=== PATIENT | female | born 2000 | race Caucasian/White ===

== ENCOUNTER 2019-04-09 18:00 | Emergency (ER) | payer OTHER ==
[~2019-04-09] VITALS: Ht 162.6 cm; Wt 52.1 kg
[2019-04-09 18:03] VITALS: BP 136/84; Ht 162.6 cm; Wt 52.1 kg
[2019-04-09] MEDS ORDERED: ONDANSETRON 4 MG INJ IV STA (18:33)
[2019-04-09] MEDS ORDERED: ACETAMINOPHEN 500 MG TAB PO STA (18:33)
[2019-04-09] MEDS ORDERED: SOD CHLORIDE 0.9% 1,000 ML IV STA (18:33)
[2019-04-09] MEDS ORDERED: KETOROLAC 30 MG INJ IV STA (18:33)
[2019-04-09] MEDS ORDERED: DEXAMETHASONE 10 MG/ML 1 ML INJ IM ONE (19:00)
[2019-04-09 19:07] VITALS: PULSE 115; RESP 20
[2019-04-09] MEDS ORDERED: IBUP800T48 PO (19:39)
[2019-04-09] MEDS ORDERED: ACET-141 PO (19:39)
[2019-04-09] MEDS ORDERED: ONDA4TAB14 PO (19:40)
--- NOTE | 2019-04-09 20:39 | ERD ---
ER Documentation Chief Complaint Chief Complaint fever , sore throat , nausea , dizziness x 3 days HPI History of Present Illness: 19-year-old female who denies a past medical history coming in today with complaint of sore throat. Patient reports developing a sore throat approximately 3 days ago. Patient reports a fever started yesterday with a T-max of 101. Patient reports nausea that started this morning As well as weakness and fatigue. Associated symptoms includes pain with swallowing. At home pharmacological/nonpharmacological treatment for symptoms: Denies Denies social concerns; Denies recent foreign travel ROS All systems reviewed and are negative except as per history of present illness. Medications Home Meds Active Scripts Ondansetron (Ondansetron Odt) 4 Mg Tab.rapdis, 4 MG PO Q6H PRN for NAUSEA AND/OR VOMITING, #10 TAB Prov:ALEJANDRO KELLER NP 04/09/19 Acetaminophen* (Acetaminophen*) 500 MG Extra Strength Tablet, 1000 MG PO Q6H PRN for PAIN AND OR ELEVATED TEMP, #30 TAB Prov:ALEJANDRO KELLER V [employer]IGHT 04/09/19 Ibuprofen* (Motrin*) 800 Mg Tab, 800 MG PO Q6H PRN for PAIN AND/OR INFLAMMATION, #30 TAB Prov:ALEJANDRO KELLER V [employer]IGHT 04/09/19 Allergies Allergies: Coded Allergies: No Known Allergy (Unverified , 04/09/19) PMhx/Soc Medical and Surgical Hx: pt denies Medical Hx, pt denies Surgical Hx Hx Alcohol Use: No Hx Substance Use: No Hx Tobacco Use: No Smoking Status: Never smoker FmHx Family History: diabetes; No coronary disease Physical Exam Vitals Vital Signs Date Temp Pulse Resp B/P (MAP) Pulse Ox O2 O2 Flow FiO2 Time Delivery Rate 04/09/19 102.5 115 20 98 Room Air 19:07 04/09/19 101.7 112 18 136/84 98 18:03 (101) Physical Exam Const: No acute distress Head: Atraumatic Eyes: Normal Conjunctiva ENT: Normal External Ears, Nose; mild erythema noted to oropharynx, 2+ tonsils with tonsillar exudate Neck: Full range of motion. No meningismus. Resp: Clear to auscultation bilaterally Cardio: Tachycardia at 110, no murmurs Abd: Soft, non tender, non distended. Normal bowel sounds Skin: No petechiae or rashes Back: No midline or flank tenderness Ext: No cyanosis, or edema Neur: Awake and alert Psych: Normal Mood and Affect Results 24 hrs Laboratory Tests Test 04/09/19 19:08 POC Beta HCG, Qualitative NEGATIVE Current Medications Medications Dose Sig/Ras Start Time Status Last (Trade) Ordered Route PRN Stop Time Admin Dose Reason Admin Sodium 1,000 ml @ Q1H STAT 04/09/19 DC 04/09/19 Chloride 1,000 mls/hr IV 18:33 19:02 04/09/19 19:32 1,000 mg ONCE STAT 04/09/19 DC 04/09/19 Acetaminophen PO 18:33 18:55 (Tylenol 04/09/19 18:37 Tab) Ondansetron 4 mg ONCE STAT 04/09/19 DC HCl (Zofran IV 18:33 Inj) 04/09/19 18:37 Ketorolac 30 mg ONCE STAT 04/09/19 DC 04/09/19 Tromethamine IV 18:33 19:18 (Toradol) 04/09/19 18:37 8 mg ONCE ONCE 04/09/19 DC 04/09/19 Dexamethasone IM 19:00 18:55 (Decadron) 04/09/19 19:01 Procedures/MDM ED course includes a thorough examination and history. Medications: Acetaminophen, ketorolac, dexamethasone, IV NS, Zofran Imaging: Labs: Rapid strep Low suspicion for life-threatening medical emergency. Low suspicion for infectious process that requires hospitalization or IV/IM antibiotics. Low suspicion for peritonsillar abscess. Otherwise healthy patient presenting with constellation of symptoms likely representing uncomplicated pharyngitis as characterized by history, physical exam findings, lab findings. Rapid strep negative. Strep culture ordered. Patient reassessment 1950: Patient remains febrile and tachycardic. Refuses to receive IV NS. No vomiting at this time. No respiratory distress, otherwise relatively well appearing and nontoxic. Educated patient that culture was ordered. And there is no indication for device at this time. disposition given. Patient educated on diagnoses, prescriptions, follow-up care, return precautions. Strict return precautions given for worsening condition; questions answered discharge. Patient and mother verbalizes understanding of discharge instructions as well as plan of care. Disposition for discharge with followup in 2 days with PCP/clinic. Departure Diagnosis: Primary Impression: Pharyngitis Condition: Stable Patient Instructions: Pharyngitis, Viral Referrals: [facility] YOU HAVE RECEIVED A MEDICAL SCREENING EXAM AND THE RESULTS INDICATE THAT YOU DO NOT HAVE A CONDITION THAT REQUIRES URGENT TREATMENT IN THE EMERGENCY DEPARTMENT. FURTHER EVALUATION AND TREATMENT OF YOUR CONDITION CAN WAIT UNTIL YOU ARE SEEN IN YOUR DOCTORS OFFICE WITHIN THE NEXT 1-2 DAYS. IT IS YOUR RESPONSIBILITY TO MAKE AN APPOINTMENT FOR FOLOW-UP CARE. IF YOU HAVE A PRIMARY DOCTOR --you should call your primary doctor and schedule an appointment IF YOU DO NOT HAVE A PRIMARY DOCTOR YOU CAN CALL OUR PHYSICIAN REFERRAL HOTLINE AT IF YOU CAN NOT AFFORD TO SEE A PHYSICIAN YOU CAN CHOSE FROM THE FOLLOWING [facility] [address] [facility] [address] [facility] [facility] [address] [facility] [address] [facility] [facility] [address] [facility]. [facility] [address] [facility]. [facility] YOU HAVE RECEIVED A MEDICAL SCREENING EXAM AND THE RESULTS INDICATE THAT YOU DO NOT HAVE A CONDITION THAT REQUIRES URGENT TREATMENT IN THE EMERGENCY DEPARTMENT. FURTHER EVALUATION AND TREATMENT OF YOUR CONDITION CAN WAIT UNTIL YOU ARE SEEN IN YOUR DOCTORS OFFICE WITHIN THE NEXT 1-2 DAYS. IT IS YOUR RESPONSIBILITY TO MAKE AN APPOINTMENT FOR FOLOW-UP CARE. IF YOU HAVE A PRIMARY DOCTOR --you should call your primary doctor and schedule and appointment IF YOU DO NOT HAVE A PRIMARY DOCTOR YOU CAN CALL OUR PHYSICIAN REFERRAL HOTLINE AT . IF YOU CAN NOT AFFORD TO SEE A PHYSICIAN YOU CAN CHOSE FROM THE FOLLOWING PENDING SALE TO [facility]: [facility] [id number] [place] [address] [facility] [address] [place] [address] [facility] [address] [place] [address] Additional Instructions: Thank you very much for allowing us to participate in your care. Your health and safety is our top priority at [facility]. It is important to read all discharge instructions and education provided in your discharge packet. *We did a culture to confirm Streptococcus pharyngitis. If the results are positive, we will we will call you in approximately 2-3 days and add antibiotic if needed* Call your primary care doctor TOMORROW for an appointment during the next 2-4 days and bring all the information and medications prescribed. Have prescriptions filled and follow precisely the directions on the label. -Ibuprofen and acetaminophen is for pain and fever; both medications can be given at the same time if it is time for the next dose (acetaminophen every 4-6 hours, ibuprofen every 6 hours). It is important to have adequate fever control to prevent febrile complications. --Ibuprofen is a medication that will help with pain/inflammation. At the dosage of 600 to 800 mg, this will help with inflammation/swelling. Take this medication as prescribed. If the symptoms get worse and your provider is unavailable, return to the Emergency Department immediately. ALEJANDRO KELLER NP Apr 09, 2019 20:39
== END 2019-04-09 19:55 | disposition home or self-care (01) ==
LOC: FTE 18:00
DX: J02.9 Acute pharyngitis, unspecified (principal)
CPT/HCPCS: 81025; 87430; 87880; 96361; 96372; 96374; J1100; J1885; J7030; Z7502; Z7610; J2405